=== PATIENT | male | born 1980 | race Caucasian/White ===

== ENCOUNTER → 2021-09-20 | Outpatient (CLI) | payer OTHER ==
--- NOTE | 2021-09-20 16:59 | RAD ---
XR LUMBAR SPINE 2-3V History: Reason: LOW BACK PAIN. / Spl. Instructions: / History: Technique: 3 views lumbar spine. Comparison: None. Findings: Straightening of the lumbar spine. Normal vertebral body height. No acute fracture. Mild to moderate degenerative disc changes most prominent L4-5. Surgical clips right upper quadrant. Impression: 1. Mild to moderate lumbar spondylosis. Electronically signed by: Bill Rankin DO (09/20/2021 4:56 PM) [id number]
== END ==
LOC: RAD 12:24
PROVIDERS: ATTEND Anesthesiology Pain Medicine
DX: Z02.71 Encounter for disability determination (principal); M47.816 Spondylosis without myelopathy or radiculopathy, lumbar region; M51.36 Other intervertebral disc degeneration, lumbar region
CPT/HCPCS: 72100